=== PATIENT | male | born 1980 | race Caucasian/White ===

== ENCOUNTER 2019-05-23 18:48 | Emergency (ER) | payer SELFPAY ==
[2019-05-23 18:49] VITALS: BP 155/95; PULSE 91; RESP 16; TEMP 36.6; BMI 29.7
--- NOTE | 2019-05-23 19:07 | CT_ITS ---
STUDY: CT ABDOMEN AND PELVIS WITHOUT CONTRAST REASON FOR EXAM: Male, 38 years old. Right flank pain RADIATION DOSAGE (If Supplied By Facility): CTDIvol = ( 7.62 ) mGy, DLP = ( 371.02 ) mGycm TECHNIQUE: Transaxial images were obtained from the dome of the diaphragm to the symphysis pubis without oral contrast, and without intravenous contrast. Sagittal and coronal images were reconstructed. Individualized dose optimization techniques were used for this CT. COMPARISON: None. FINDINGS: Calcific focus in the right lower lobe. The visualized portions of the heart are within normal limits. Normal liver. Normal gallbladder and extrahepatic biliary system. Normal spleen. Normal pancreas. Normal bilateral adrenal glands. Hydronephrosis of the right kidney with mild right hydroureter. Right perinephric stranding. Hypoattenuated 1.3 cm right renal cortical nodule. Normal left kidney. Normal visualized stomach. Normal small intestine. Normal colon. The appendix is visualized and appears normal. Normal abdominal aorta. Normal inferior vena cava. Normal retroperitoneum. There is a 2 mm stone within the intramural segment of the right UVJ after urinary bladder. Normal abdominal wall. Mild degenerative vertebral changes. CT/Abdomen/Pelvis without Cont IMPRESSION: Right hydronephrosis and right hydroureter with perinephric stranding. Obstructive stone is noted at the intramural segment of the right UVJ. Electronically Signed: Shahbaz Mcdaniel DO at 19:50 EDT Tel [phone], Service support ,
[2019-05-23] MEDS: Ketorolac 30 MG/ML Syringe IV (19:14)
[2019-05-23] MEDS: 0.9% Normal Saline 1,000 ML 250 ML IV (19:17)
--- NOTE | 2019-05-23 19:19 | ED.DCSUM_ITS ---
History of Present Illness Chief Complaint: Flank Pain Informant: Patient - Abdominal Pain/Flank Pain Onset: Today Context: Sudden Onset - around 10-12 hrs INFORMATION DEVELOPER Timing: Continuous, Waxes and wanes Location: Right Flank Current Severity: Moderate Maximum Severity: Moderate Worsened by: Nothing Relieved by: Nothing - Nausea/Vomiting/Emesis GI Symptom: Negative for: Nausea, Vomiting - Diarrhea/Melena/Hematochezia GI Symptom: Negative for: Diarrhea, Melena, Hematochezia Associated Symptoms: Negative for: Dysuria, Frequency, Hematuria, Urgency Narrative: Pain started around 30-60 minutes after he ate breakfast this morning. No worse with movement. Colicky. Never had this before. No nausea. No jaundice or itching. No fevers. Wraps around to his right lower quadrant and his low back all on the right. No right upper quadrant pain. Prior similar symptoms: No Recent Illness/Hospitalization: No Past Medical History - Allergies and Home Meds Allergies/Adverse Reactions: Allergies No Known Allergies Allergy (Verified 05/23/19 18:51) Primary Care Physician: Miguelito Patrick DO [Primary Care Provider] - Past Medical History: None Surgical History: no surgical history Smoking Status: Current every day smoker Drugs: None Review of Systems General: Denies: Chills, Fever, Sweats Eyes: Denies: Visual changes - bilaterally, Diplopia ENT: Denies: Rhinorrhea, Sore throat Cardiovascular: Denies: Chest pain, Palpitations Respiratory: Denies: Dyspnea, Cough, Dyspnea on exertion Gastrointestinal: Reports: Abdominal pain. Denies: Nausea, Vomiting, Diarrhea, Melena, Hematochezia Genitourinary: Denies: Dysuria, Hematuria, Frequency Musculoskeletal: Reports: Back pain. Denies: Extremity Pain Skin: Denies: Rash, Wounds Neurological: Denies: Headache, Weakness, Numbness Physical Exam Vital Signs/Narrative: Vital Signs Temp Pulse Resp BP 05/23/19 18:49 97.9 F 91 16 155/95 H Inital Vital Signs reviewed: Yes General: Well nourished, Well developed, No Acute Distress Head: Normocephalic, Atraumatic Eyes: Perrl, EOMI ENT: Moist mucous membranes, No rhinorrhea Neck: Supple, Nontender Cardiovascular: Regular rate, Regular rhythm, No murmurs Respiratory: No distress, CTA bilaterally, Chest nontender Abdomen: Soft, Nondistended, Normal bowel sounds, Tender - mild RLQ only. Negative for: Guarding, Rebound tenderness Back: Nontender, Normal Inspection. Negative for: CVA tenderness Extremities: Nontender, No edema Skin: Normal color, No rash Neurological: Alert, Oriented x3, Cranial nerves II-XII grossly intact, Normal Strength, Normal Sensation Psychological: Normal affect, Normal Mood Diagnostic/Tx/Re-eval Impressions Abdomen/Pelvis CT 05/23/19 19:07 IMPRESSION: Right hydronephrosis and right hydroureter with perinephric stranding. Obstructive stone is noted at the intramural segment of the right UVJ. Electronically Signed: Shahbaz Mcdaniel DO at 19:50 EDT Tel [phone], Service support , 05/23/19 19:07 Abdomen/Pelvis without Cont [CT] Stat Laboratory Results 05/23/19 05/23/19 05/23/19 18:57 18:57 20:05 WBC 18.4 H RBC 4.80 Hgb 15.2 Hct 45.1 MCV 94.0 MCH 31.7 MCHC 33.7 RDW Std Deviation 43.7 RDW Coeff of [place] 12.7 Plt Count 384 MPV 10.1 Immature Gran % (Auto) 0.500 Neut % (Auto) 84.4 H Lymph % (Auto) 8.0 L [place] % (Auto) 6.8 Eos % (Auto) 0.1 Baso % (Auto) 0.2 Absolute Neuts (auto) 15.5 H Absolute Lymphs (auto) 1.47 Nucleated RBC % 0 Sodium 140 Potassium 3.9 Chloride 109 H Carbon Dioxide 22.0 Anion Gap 9 BUN 18 Creatinine 1.35 H Estim Creat Clear Calc 59.71 Est GFR (MDRD) Af Amer 76 Est GFR (MDRD) Non-Af 63 BUN/Creatinine Ratio 13.3 Glucose 131 H Calcium 9.6 Urine Color Yellow Urine Clarity Sl. Cloudy Urine pH 6.5 Ur Specific [place] 1.010 Urine Protein 15 H Urine Glucose (UA) Normal Urine Ketones Negative Urine Occult Blood 250 H Urine Nitrite Negative Urine Bilirubin Negative Urine Urobilinogen Normal Ur Leukocyte Esterase Negative Urine RBC 25-50 SEEN Urine WBC 0-5 SEEN Ur Squamous Epith Cells 0 SEEN Urine Bacteria 0 SEEN Urine Mucus 0 SEEN - Medical Decision Making Symptoms sound like a kidney stone, however with this tenderness in the right lower quadrant and lack of CVA tenderness, differential also includes appendicitis so labs and a CT were obtained. White blood count 18.4, CT however shows clear right UVJ 2 mm stone with hydroureter and hydronephrosis with perinephric stranding, caused by kidney stone. Appendix is okay/normal. Pain was well controlled with Toradol. He was also given some IV fluids. I feel he can be safely discharged home, he required nothing else for his pain but since it is after closing time for pharmacies, he was given a [place] prior to discharge, urinary filters, and we discussed symptom control, taking any stones that he catches to his doctor for analysis, and reasons to return. His urinalysis showed no signs of infection, blood only. ED Disposition - Plan for ED Patient: Disposition: Home or Assisted Living Diagnosis: Urolithiasis, Ureteral colic Instructions: KIDNEY STONE w/ Colic Prescriptions: Tamsulosin HCl [Flomax] 0.4 mg PO DAILY #7 cap Prescription Printed Hydrocodone Bitart/Apap 5-325 [[place] 5MG-325MG] 1 tab PO Q4H PRN PRN 2 Days #10 tab PRN Reason: Pain Prescription Printed Referrals: Miguelito Patrick DO [Primary Care Provider] - (or ER as needed if symptoms out of control or if you develop fever and pain persistent) Additional Instructions: Filter all of your urine. When you catch a stone, you may stop, and you may also discontinue the Flomax.
[2019-05-23 19:23] LABS: Absolute Lymphocyte Count 1.47 X10^3/uL (0.83-4.51); Absolute Neutrophil Count 15.5 X10^3/uL (2.0-7.7); Basophil# 0.04 X10^3/uL; Basophil% 0.2 % (0-1); Eosinophil# 0.01 X10^3/uL; Eosinophils% 0.1 % (0-5); Hematocrit 45.1 % (40-54); Hemoglobin 15.2 g/dL (13.0-16.5); Lymphocyte # 1.47 X10^3/ul (4.0); Mean Corp Hgb Conc 33.7 g/dL (32-36); Mean Corpuscular Hgb 31.7 pg (27.0-32.0); Mean Platelet Vol. 10.1 fl (6.2-12.0); Monocyte# 1.26 X10^3/uL; Monocyte% 6.8 % (0-10); NRBC Flagged by Analyzer 0 % (0-5); Neutrophil # 15.54 X10^3/uL (2.7-7.7); Neutrophil % 84.4 % (47-70); Platelet Count 384 K/mm3 (150-450); RBC Distribution Width CV 12.7 % (11.6-14.6); RBC Distribution Width SD 43.7 fl (35.1-43.9); White Blood Count 18.4 K/mm3 (4.4-11.0)
[2019-05-23 19:32] LABS: Anion Gap 9 (5-15); BUN 18 mg/dL (7-18); BUN/Creat Ratio 13.3 RATIO (10-20); Calcium,Total 9.6 mg/dL (8.5-10.1); Chloride 109 mmol/L (98-107); Creatinine, Serum 1.35 mg/dL (0.70-1.30); EST Glomerular Filtration Rate 63 mL/min (>60); Est Glom Filt Rate - Afr Amer 76 mL/min (>60); Estimated Creatinine Clearance 59.71 ml/min; Glucose 131 mg/dL (74-106); Potassium 3.9 mmol/L (3.5-5.1); Sodium Level 140 mmol/L (136-145)
[2019-05-23 20:11] LABS: Bacteria 0 SEEN /hpf (None Seen); Mucous, Urine 0 SEEN /hpf (<or=2+); Squamous Epithelial Cells - UA 0 SEEN /hpf (0-5)
[2019-05-23 20:23] LABS: Color, Urine Yellow (Yellow); Glucose, Dipstick Normal (Normal); Ketone-Dipstick Negative (Negative); Leukocyte Esterase-Dipstick Negative /ul (Negative); Nitrite-Dipstick Negative (Negative); Occult Blood-Urine 250 /ul (Negative); Protein-Dipstick 15 mg/dl (Negative); Urine Bilirubin Dipstick Negative (Negative); Urine Clarity Sl. Cloudy (Clear); Urine Urobilinogen Normal (Normal); Urine pH 6.5 (5.0 - 8.0)
[2019-05-23 20:32] LABS: Red Blood Cells-Urine 25-50 SEEN /hpf (0-5); White Blood Cells 0-5 SEEN /hpf (0-5)
[2019-05-23] MEDS: HYDROcodone Bitartrate/Apap 5/325 Tablet PO (21:07)
[2019-05-23 21:14] VITALS: BP 144/92; PULSE 87; RESP 15; O2SAT 97
== END 2019-05-23 21:16 | disposition home or self-care (01) ==
PROVIDERS: Emergency Provider Emergency Medicine; Family Provider Family Medicine; PCP Family Medicine
DX: N13.2 Hydronephrosis with renal and ureteral calculous obstruction (principal); F17.200 Nicotine dependence, unspecified, uncomplicated
CPT/HCPCS: 74176; 80048; 81001; 85025; 96361; 96374; 99284; J7030; A4216